=== PATIENT | male | born 1970 | race Caucasian/White ===

== ENCOUNTER 2017-07-12 17:13 | Inpatient (IN) | payer MEDICARE ==
[~2017-07-12] VITALS: Ht 157.5 cm; Wt 59.0 kg
--- NOTE | ~2017-07-12 | DS ---
Unit #: [id number] #: [id number] Patient: MILENA PERDOMO [id number] [facility] [address] [place] [address] [id number] MR#: [id number] NAME: MILENA PERDOMO ROOM: [facility] Age: 46 Sex: M Admission Date: 07/12/2017 : 1970 Discharge Date: 07/18/2017 Attending Physician: Jonathan Conn M.D. Primary Care Physician: Generic Doctor Not In System DISCHARGE SUMMARY REASON FOR ADMISSION The patient is a 46-year-old white male, admitted to the [address] [place] [address] unit from a local senior living house after he was released from skilled nursing. HOSPITAL COURSE The patient was admitted to the [address] [place] [address] unit. He was unfortunately unable to provide much in the way of useful information and appeared genuinely confused after this physician had initially felt as though the patient may have been providing "approximate answers." He did seem to clear considerably with initiation of Zyprexa, which was started for the patient to address psychotic symptoms. Attempts to obtain records from his treatment in skilled nursing were unsuccessful. By 07/18/2017, the patient was felt to probably at or near his rather meager psychiatric baseline. Discharge was ordered. FINAL DIAGNOSES Chronic paranoid schizophrenia. DISPOSITION ON DISCHARGE The patient is discharged on the following medications; Zyprexa 15 mg at bedtime for psychosis. DISCHARGE INSTRUCTIONS No dietary or physical restrictions were placed upon the patient at time of discharge. FOLLOWUP Followup will take place through the auspices of community mental health resources. PROGNOSIS The patient's prognosis is considered fair. Dictated by... Jonathan Conn M.D. CB/sarah TD: 07/18/2017 20:10 JOB #: [id number] Unit #: [id number] #: [id number] Patient: MILENA PERDOMO DISCHARGE SUMMARY Page 1 of 1 X Jonathan Conn MD X DISCHARGE SUMMARY
--- NOTE | ~2017-07-12 | HP ---
Unit #: [id number] #: [id number] Patient: MILENA PERDOMO [id number] [place] [address] [id number] MR#: [id number] NAME: MILENA PERDOMO ROOM: [facility] Age: 46 Sex: M Admission Date: 07/12/2017 : 1970 Attending Physician: Jonathan Conn M.D. Admitting Physician: Jonathan Conn M.D. Primary Care Physician: Generic Doctor Not In System HISTORY AND PHYSICAL HISTORY OF PRESENT ILLNESS Milena is a 46 year old admitted to [address] [place] [address] with psychotic behavior. He is a poor historian so his history is taken from his chart. PAST MEDICAL HISTORY Nothing significant. PAST SURGICAL HISTORY Nothing reported. ALLERGIES No known drug allergies. SOCIAL HISTORY Smokes 1 1/2 packs per day. No history of alcohol or illicit drug abuse/use. FAMILY HISTORY Medically not known. REVIEW OF SYSTEMS He does not answer questions appropriately. There are no reports of nausea, vomiting or diarrhea. He has had no cough or increased temperature. CURRENT MEDICATIONS 1. Zyprexa 15 mg q h.s. 2. Zyprexa Zydis 10 mg q.8 hours p.r.n. 3. Milk of Magnesia p.r.n. 4. Maalox p.r.n. 5. Tylenol p.r.n. PHYSICAL EXAMINATION GENERAL: Alert, small build, in no apparent distress. VITAL SIGNS: Blood pressure 116/64, heart rate 70, respirations 16, temperature 98.6. WEIGHT: 130. HEIGHT: 5 foot 2 inches. SKIN: Unable to assess. HEENT: Unable to assess. NECK: Unable to assess. HEART: Regular rate and rhythm. Unit #: [id number] #: [id number] Patient: MILENA PERDOMO LUNGS: Unable to assess. ABDOMEN: Soft, nontender. : Unable to assess. EXTREMITIES: Moves all extremities without focal deficit. GAIT: Normal. NEUROLOGICAL: Unable to assess. IMPRESSION Psychiatric admission. RECOMMENDATIONS PSYCHIATRIC: Per psychiatrist. MEDICAL: I see no contraindications to participating in facility's activities. MEDICAL PROGNOSIS Good. MEDICAL CONDITION Stable. Dictated by... Magaly Sevilla P.A.-C. for Kely Gonzalez M.D. IBETH/parul TD: 07/13/2017 21:06 JOB #: [id number] HISTORY AND PHYSICAL Page 1 of 1 X Magaly Sevilla HISTORY AND PHYSICAL
--- NOTE | ~2017-07-12 | PN ---
Unit #: [id number] #: [id number] Patient: MILENA PERDOMO [id number] [facility] [address] [place] [address] [id number] MR#: [id number] NAME: MILENA PERDOMO ROOM: [facility] Age: 46 Sex: M Admission Date: 07/12/2017 : 1970 Attending Physician: Jonathan Conn M.D. Admitting Physician: Jonathan Conn M.D. Primary Care Physician: Generic Doctor Not In System [facility] PROGRESS NOTES DATE 07/16/2017 DISCUSSION The patient is calm and cooperative with the medications and harris routine. They will be continued to await work regarding his disposition options and I will a psychiatric social worker supervisor to see him to see if we can figure out what exactly needs to take place once the patient is discharged as he appears to be approaching his psychiatric baseline. Dictated by... Jonathan Conn M.D. CB/parul TD: 07/17/2017 00:04 JOB #: [id number] [facility] PROGRESS NOTES Page 1 of 1 X Jonathan Conn MD PROGRESS NOTE
--- NOTE | ~2017-07-12 | PA ---
Unit #: [id number] #: [id number] Patient: MILENA PERDOMO [id number] [facility] [address] [place] [address] [id number] MR#: [id number] NAME: MILENA PERDOMO ROOM: [facility] Age: 46 Sex: M Admission Date: 07/12/2017 : 1970 Date of Assessment: 07/13/2017 Attending Physician: Jonathan Conn M.D. Admitting Physician: Jonathan Conn M.D. Primary Care Physician: Generic Doctor Not In System PSYCHIATRIC ASSESSMENT IDENTIFYING INFORMATION The patient is a 46-year-old white male admitted in transfer from "the ) [facility]" in a state of florid psychosis. CHIEF COMPLAINT None given. INFORMANT(S) Chart. Patient provides no usable history. HISTORY OF PRESENT ILLNESS The patient is a 46-year-old single white male admitted to the [address] [place] [address] Unit after he was brought to this facility from "the 2) [facility] yesterday" The patient was recent released from the [facility], and apparently had been receiving medications there but has not been receiving them since his discharge. When seen today, the patient is abed. He stares blankly. This patient provides virtually nothing in the way of usable information claiming he does not know where he is from, where he lives, and the circumstances of his admission. PAST PSYCHIATRIC HISTORY As above. PAST MEDICAL HISTORY Noncontributory. MEDICATION(S) As noted previously, the patient was reportedly prescribed antipsychotic medication while incarcerated, but we have no record of that medication. ALLERGIES None reported. FAMILY HISTORY Not obtained. SOCIAL HISTORY As noted previously, the patient has been assigned to a longterm house upon his release from detention. MENTAL STATUS EXAMINATION Examination at this time reveals the patient to be a well-developed well-nourished white male appearing stated age. She is in no apparent Unit #: [id number] #: [id number] Patient: MILENA PERDOMO physical distress at the time of the examination. He is awake and alert, but oriented to person only. Speech is impoverished. Formal testing of memory and cognition are not possible. The patient does appear to be responding to internal stimuli. His judgment and insight appear to be significantly impaired. ASSETS AND LIABILITIES The patient's assets are to be assessed. Liabilities: Profound psychosis. Lack of resources. DIAGNOSTIC IMPRESSION Chronic undifferentiated schizophrenia. TREATMENT PLAN The patient remains hospitalized for safety and stabilization. We will begin an empiric trial of Zyprexa 15 mg at h.s. and endeavor to find what if any medications the patient may have responded to previously. We will also look to obtain some sort of past psychiatric history. ESTIMATED LENGTH OF STAY 5 to 7 days. Dictated by... Jonathan Conn M.D. MERT/tawana TD: 07/13/2017 14:28 JOB #: [id number] PSYCHIATRIC ASSESSMENT Page 1 of 1 X Jonathan Conn MD X PSYCHIATRIC ASSESSMENT
--- NOTE | ~2017-07-12 | PN ---
Unit #: [id number] #: [id number] Patient: MILENA PERDOMO [id number] [facility] [address] [place] [address] [id number] I MR#: [id number] NAME: MILENA PERDOMO ROOM: [facility] Age: 46 Sex: M Admission Date: 07/12/2017 : 1970 Attending Physician: Jonathan Conn M.D. Admitting Physician: Jonathan Conn M.D. Primary Care Physician: Generic Doctor Not In System [facility] PROGRESS NOTES DATE 07/17/2017 DISCUSSION The patient offers no new complaints today, he remains somewhat confused with regards to his disposition and it is my hope that his social professionals will be able to iron out his legal status in the near future as the patient appears to be approaching his rather meager psychiatric baseline. Dictated by... Jonathan Conn M.D. CB/josefina TD: 07/18/2017 06:24 JOB #: [id number] [facility] PROGRESS NOTES Page 1 of 1 X Jonathan Conn MD PROGRESS NOTE
--- NOTE | ~2017-07-12 | PN ---
Unit #: [id number] #: [id number] Patient: MILENA PERDOMO [id number] [facility] [address] [place] [address] [id number] I MR#: [id number] NAME: MILENA PERDOMO ROOM: [facility] Age: 46 Sex: M Admission Date: 07/12/2017 : 1970 Attending Physician: Jonathan Conn M.D. Admitting Physician: Jonathan Conn M.D. Primary Care Physician: Generic Doctor Not In System [facility] PROGRESS NOTES DATE 07/14/2017 DISCUSSION The patient is a bit more responsive today but continues to respond with what would appear to be approximate answers not acknowledging where he is from, not acknowledging that he was in [facility], etc. We continue empirical treatment for his psychosis. Dictated by... Jonathan Conn M.D. MERT/luis TD: 07/14/2017 15:57 JOB #: [id number] [facility] PROGRESS NOTES Page 1 of 1 X Jonathan Conn MD PROGRESS NOTE
[2017-07-13 12:35] LABS: BASOPHIL% 0.6 % (0-2.5); EOSINOPHIL# 0.1 X10e3 (0-0.7); EOSINOPHIL% 2.2 % (0.0-7.0); HEMATOCRIT 44.6 % (38.0-50.0); LYMPHOCYTE# 1.7 X10e3 (1.0-3.5); LYMPHOCYTE% 26.6 % (17.0-45.0); MEAN CORPUSCULAR HEMOGLOBIN 30.2 PG (28-34); MEAN CORPUSCULAR HGB CONC 33.6 g/dL (30-36); MEAN PLATELET VOLUME 11.1 FL (6.5-11.5); MONOCYTE# 0.4 X10e3 (0-1.0); MONOCYTE% 5.8 % (3.0-12.0); NEUTROPHIL# 4.1 X10e3 (1.5-7.1); NEUTROPHIL% 64.8 % (40-75); PLATELET COUNT 135 X10e3 (140-420); RED BLOOD COUNT 4.96 X10e (3.90-5.60); RED CELL DISTRIBUTION WIDTH 13.6 % (11.0-15.5); WHITE BLOOD COUNT 6.3 X10e3 (4.0-10.5)
[2017-07-13 12:36] LABS: DIFF IND NO
[2017-07-13 12:48] LABS: ALBUMIN SERUM 4.1 g/dL (3.5-5.0); BILIRUBIN,TOTAL 0.9 mg/dL (0.2-2.0); BUN/CREATININE RATIO 13.75; CREATININE SERUM 0.8 mg/dL (0.6-1.4); GLOM FILT RATE Estimated 105.7 mL/min (>60); POTASSIUM 4.4 mmol/L (3.5-5.1); PROTEIN TOTAL SERUM 6.4 g/dL (6.0-8.3)
== END 2017-07-18 14:45 | disposition home or self-care (01) | DRG 885 ==
LOC: P1S 19:29
PROVIDERS: Specialist
DX: F20.0 Paranoid schizophrenia (principal); F17.200 Nicotine dependence, unspecified, uncomplicated
CPT/HCPCS: 80053; 85025